=== PATIENT | male | born 1985 | race Caucasian/White ===

== ENCOUNTER 2024-06-04 13:05 | Outpatient (CLI) | payer MEDICAID, SELFPAY ==
[2024-06-04 19:57] LABS: Hep A Ab, IgM ND
[2024-06-04 20:58] LABS: Basophils # 0.1 K/mm3 (0-0.2); Basophils % 0.7 % (0.1-2.0); Eosinophils # 0.1 K/mm3 (0.0-0.4); Hematocrit 44.4 % (42.0-52.0); Hemoglobin 15.2 g/dL (14.1-18.0); Lymphocytes # 1.6 K/mm3 (0.7-4.5); Lymphocytes % 23.9 % (10-50); Mean Corpuscular HGB Conc 34.2 g/dL (31.8-35.4); Mean Corpuscular Hemoglobin 32.5 pg (27.0-31.2); Mean Corpuscular Volume 95.1 fl (80-94); Mean Platelet Volume 11.2 fl (7.4-10.4); Monocytes # 0.4 K/mm3 (0.1-1.0); Monocytes % 5.4 % (1.7-9.3); Neutrophils # 4.6 K/mm3 (1.8-7.8); Neutrophils % 68.9 % (37.0-80.0); Platelet Count 265 K/mm3 (142-424); Red Blood Count 4.67 M/mm3 (4.60-6.20); Red Cell Distribution Width 11.8 % (11.5-17.5); White Blood Count 6.7 K/mm3 (4.8-10.8)
[2024-06-04 21:00] LABS: Alanine Aminotransferase 67 U/L (12-78); Albumin/Globulin Ratio 2.2 (1.1-1.8); Alkaline Phosphatase 51 U/L (38-126); Anion Gap 12.8 mEq/L (5-15); Aspartate Amino Transferase 46 U/L (17-59); Bilirubin,Total 0.5 mg/dl (0.2-1.3); Blood Urea Nitrogen 19 mg/dl (9-20); Calcium 9.8 mg/dl (8.4-10.2); Carbon Dioxide 29 mmol/L (22.0-30.0); Chloride 103 mmol/L (98-107); Estimated Glomerular Filt Rate 127 ml/min (>60); GFR (African American) 154 ML/MIN (>60); Globulin 2.3 g/dL (1.3-3.2); Glucose 101 mg/dl (74-100); Potassium 4.8 mmoL/L (3.5-5.1); Sodium 140 mmol/L (136-145); Total Protein,Serum 7.3 g/dl (6.3-8.2)
[2024-06-04 22:27] LABS: HIV Combo NEGATIVE (Negative)
[2024-06-04 23:38] LABS: Hepatitis C Ab Qual. W/ RFX REACTIVE (Negative)
[2024-06-06 09:14] LABS: Hep A Ab, Total Negative (Negative); Hep B Core Ab, Total Negative (Negative); Hep B Surface Ab, Qual Reactive (.); Hepatitis B Surface Antigen Negative (Negative)
[2024-06-08 22:54] LABS: Hepatitis C Genotype 1a (.)
== END 2024-06-04 23:59 | disposition home or self-care (01) ==
LOC: LAB.DROPOF 06-08 13:07
PROVIDERS: PCP Nurse Practitioner Family; Visit Provider Nurse Practitioner Family
DX: Z11.59 Encounter for screening for other viral diseases (principal); Z91.89 Other specified personal risk factors, not elsewhere classified
CPT/HCPCS: 80053; 85025; 86704; 86706; 86708; 86709; 86803; 87340; 87389; 87522; 87902